=== PATIENT | male | born 2000 | race Caucasian/White ===

== ENCOUNTER 2022-03-08 10:43 | Emergency (ER) | payer OTHER ==
[2022-03-08] MEDS ORDERED: AMOX TR-K CLV1 EAC4 PO (11:48)
[2022-03-08] MEDS ORDERED: VIBRAMYCIN100 MG PO (11:48)
== END 2022-03-08 12:31 | disposition home or self-care (01) ==
LOC: FER 10:43
DX: S81.842A Puncture wound with foreign body, left lower leg, initial encounter (principal); Z87.09 Personal history of other diseases of the respiratory system; Z28.310 Unvaccinated for COVID-19; Z88.1 Allergy status to other antibiotic agents; W22.8XXA Striking against or struck by other objects, initial encounter; Y92.69 Other specified industrial and construction area as the place of occurrence of the external cause; Y99.0 Civilian activity done for income or pay
CPT/HCPCS: 73590